=== PATIENT | female | born 1985 | race Caucasian/White ===

== ENCOUNTER 2020-02-07 11:43 | Emergency (ER) | payer OTHER ==
--- NOTE | 2020-02-07 12:38 | ER Document Report ---
Entered by NIURKA RIVERA SCRIBE 02/07/20 1231 Acting as scribe for:LINDA ORDONEZ MD ED GI/ - General Stated Complaint: FEVER,NAUSEA Time Seen by Provider: 02/07/20 12:09 Mode of Arrival: Ambulatory Information source: Patient Notes: This 35 year old female patient presents to the emergency department today with complaints of urinary frequency. She was seen at an urgent care yesterday and was diagnosed with a UTI and put on Macrodantin. She reports that she has now developed bilateral kidney pain, fevers, chills, generalized body aches, headache, and nausea. She does not have any vomiting. - Related Data Allergies/Adverse Reactions: No Known Allergies Allergy (Verified 02/07/20 13:23) Past Medical History - General Information source: Patient - Social History Smoking Status: Former Smoker Cigarette use (# per day): No Frequency of alcohol use: None Drug Abuse: None Lives with: Family Family History: Reviewed & Not Pertinent - Medical History Medical History: Negative Past Surgical History: Reports: Hx Section - x2, Hx Tonsillectomy Review of Systems - Review of Systems Constitutional: See HPI, Chills, Fever EENT: No symptoms reported Cardiovascular: No symptoms reported Respiratory: No symptoms reported Gastrointestinal: See HPI, Nausea. denies: Vomiting Genitourinary: See HPI, Frequency Female Genitourinary: No symptoms reported Musculoskeletal: See HPI, Muscle pain Skin: No symptoms reported Hematologic/Lymphatic: No symptoms reported Neurological/Psychological: See HPI, Headaches -: Yes All other systems reviewed and negative Physical Exam - Vital signs Vitals: Temp Pulse Resp BP Pulse Ox 98.8 F 108 H 20 134/84 H 97 02/07/20 11:49 02/07/20 11:49 02/07/20 11:49 02/07/20 11:49 02/07/20 11:49 - Notes Notes: Physical Exam: General: Alert, appears well. HEENT: Normocephalic. Atraumatic. PERRL. Extraocular movements intact. O ropharynx clear. Neck: Supple. Non-tender. Respiratory: No respiratory distress. Clear and equal breath sounds bilaterally. Cardiovascular: Regular rate and rhythm. Abdominal: Suprapubic tenderness to palpation. No distension. Normal Bowel Sounds. Back: Bilateral CVA tenderness to percussion. No gross abnormalities. Extremities: Moves all four extremities. Upper extremities: Normal inspection. Normal ROM. Lower extremities: Normal inspection. No edema. Normal ROM. Neurological: Normal cognition. AAOx4. Normal speech. Psychological: Normal affect. Normal Mood. Skin: Warm. Dry. Normal color. Course - Re-evaluation Re-evalutation: 02/07/20 13:43 The patient was evaluated during the global COVID-19 pandemic and that diagnosis was suspected/considered upon their initial presentation. Their evaluation, treatment and testing was consistent with current guidelines for patients who present with complaints or symptoms that may be related to COVID-19. 02/07/20 16:13 The patient's bilirubin and transaminases were all slightly elevated. Gallbladder ultrasound showed hypoechoic liver, question of hepatitis. The CBC was unremarkable, the other chemistries were unremarkable. The urinalysis had 0 WBCs and 0 RBCs, leukocyte esterase negative and nitrite negative. It was a very dilute specimen. - Vital Signs Vital signs: Temp Pulse Resp BP Pulse Ox 98.8 F 108 H 20 134/84 H 97 02/07/20 12:00 02/07/20 11:49 02/07/20 11:49 02/07/20 11:49 02/07/20 11:49 - Laboratory Result Diagrams: 02/07/20 13:10 02/07/20 13:10 Laboratory results interpreted by me: 02/07/20 02/07/20 13:10 13:10 BUN 6 L Total Bilirubin 1.6 H Direct Bilirubin 0.5 H AST 104 H ALT 81 H Alkaline Phosphatase 179 H Urine Ketones 20 H Urine Blood SMALL H - Diagnostic Test Radiology reviewed: Image reviewed, Reports reviewed - Gallbladder ultrasound shows no gallstones or gallbladder wall thickening. No pericholecystic fluid. There is a hypoechoic liver pattern with question of hepatitis. Discharge - Discharge Clinical Impression: Urinary tract infection symptoms, Thoracolumbar back pain, Elevated liver enzymes, Encounter for laboratory testing for COVID-19 virus Condition: Stable Disposition: HOME, SELF-CARE Additional Instructions: The urinalysis today did not show signs of urine infection, however you have been on your antibiotics since yesterday and they may be working. You should continue the Macrodantin and drink plenty of fluids. The lab work showed a slight elevation in your liver enzymes today, a gallbladder ultrasound showed a liver pattern that could possibly be hepatitis. Hepatitis profile testing was ordered today, and he will be contacted if it comes back positive. The white blood cell count in the blood work was normal today which would suggest that the chills you are having last night were not due to a bacterial infection. Your symptoms may have been due to a viral infection, and COVID-19 cannot be excluded without testing. You were tested for COVID-19, you should self isolate at home until you get the testing results back. Follow-up with your primary care provider if not improving. RETURN TO THE EMERGENCY ROOM IF ANY NEW OR WORSENING SYMPTOMS. I personally performed the services described in the documentation, reviewed and edited the documentation which was dictated to the scribe in my presence, and it accurately records my words and actions.
[2020-02-07 13:33] LABS: ABSOLUTE LYMPHOCYTES (AUTO) 1.3 10^3/uL (0.5-4.7); ABSOLUTE NEUT (AUTO) 7.5 10^3/uL (1.7-8.2); BASOPHILS % (AUTO) 0.3 % (0-2); EOSINOPHILS % (AUTO) 0.1 % (0-6); HEMATOCRIT 41.8 % (36.0-47.0); HEMOGLOBIN 14.6 g/dL (12.0-15.5); LYMPHOCYTES % (AUTO) 13.2 % (13-45); MEAN CORPUSCULAR HEMOGLOBIN 30.3 pg (27.0-33.4); MEAN CORPUSCULAR HGB CONC 34.9 g/dL (32.0-36.0); MEAN CORPUSCULAR VOLUME 87 fl (80-97); PLATELET COUNT 295 10^3/uL (150-450); RED BLOOD COUNT 4.82 10^6/uL (3.72-5.28); RED CELL DISTRIBUTION WIDTH 12.5 % (11.5-14.0); SEGMENTED NEUTROPHILS % (AUTO) 76.4 % (42-78); TOTAL CELLS COUNTED % (AUTO) 100 %; WHITE BLOOD COUNT 9.9 10^3/uL (4.0-10.5)
[2020-02-07 13:36] LABS: APPEARANCE,URINE CLEAR; BILIRUBIN,URINE NEGATIVE (NEGATIVE); COLOR,URINE YELLOW; GLUCOSE, URINE NEGATIVE (NEGATIVE); KETONES,URINE 20 mg/dL (NEGATIVE); LEUKOCYTE ESTERASE,URINE NEGATIVE (NEGATIVE); NITRITE,URINE NEGATIVE (NEGATIVE); PROTEIN,URINE NEGATIVE (NEGATIVE); URINE SPECIFIC GRAVITY 1.002; UROBILINOGEN,URINE NEGATIVE mg/dL (<2.0)
[2020-02-07 13:50] LABS: ALBUMIN 4.7 g/dL (3.5-5.0); ALKALINE PHOSPHATASE 179 U/L (38-126); ANION GAP 12 (5-19); ASPARTATE AMINO TRANSFERASE 104 U/L (14-36); BILIRUBIN,DIRECT 0.5 mg/dL (0.0-0.4); BILIRUBIN,TOTAL 1.6 mg/dL (0.2-1.3); BLOOD UREA NITROGEN 6 mg/dL (7-20); CALCIUM 9.5 mg/dL (8.4-10.2); CARBON DIOXIDE 26 mmol/L (22-30); CHLORIDE 100 mmol/L (98-107); GLUCOSE 95 mg/dL (75-110); POTASSIUM 3.9 mmol/L (3.6-5.0); TOTAL PROTEIN 8.1 g/dL (6.3-8.2)
--- NOTE | 2020-02-07 15:37 | RADIOLOGY REPORT (SQ) ---
EXAM DESCRIPTION: U/S ABDOMEN LIMITED W/O DOP IMAGES COMPLETED DATE/TIME: 02/07/2020 3:16 pm REASON FOR STUDY: Back pain, elevated LFTs COMPARISON: None. TECHNIQUE: Dynamic and static grayscale images acquired of the abdomen and recorded on PACS. Additio nal selected color Doppler and spectral images recorded. LIMITATIONS: Midline bowel gas FINDINGS: PANCREAS: Midline pancreas unremarkable LIVER: No masses or biliary ductal dilatation. Liver is hypoechoic which can seen in hepatitis. LIVER VASCULATURE: Normal directional flow of the main portal vein and hepatic veins. GALLBLADDER: No stones. Normal wall thickness. No pericholecystic fluid. ULTRASOUND-DETECTED FLORES'S SIGN: Negative. INTRAHEPATIC DUCTS AND COMMON DUCT: CBD and intrahepatic ducts normal caliber. No filling defects. INFERIOR VENA CAVA: Normal flow. AORTA: No aneurysm. RIGHT KIDNEY: Normal size. Normal echogenicity. No solid or suspicious masses. No hydronephrosis. No calcifications. PERITONEAL AND RIGHT PLEURAL SPACE: No ascites or effusions. OTHER: No other significant findings. IMPRESSION: Hypoechoic liver, question hepatitis No gallstones. No biliary ductal dilatation TECHNICAL DOCUMENTATION: JOB ID: [id number] 2010 [employer]- All Rights Reserved Reading location - IP/workstation name: [email or web address]
[2020-02-07] MEDS ORDERED: KETOROLAC TROMETHAMINE INJ/PF 30 MG/1 ML SDV IV ONE (15:55)
[2020-02-07 18:02] VITALS: BP 121/73
[2020-02-09 13:36] LABS: HEPATITS B SURFACE ANTIGEN Negative (Negative)
[2020-02-09 14:20] LABS: HEPATITIS C VIRUS ANTIBODY <0.1 s/co ratio (0.0-0.9)
== END 2020-02-07 17:50 | disposition home or self-care (01) ==
LOC: ER 11:43
DX: R39.198 Other difficulties with micturition (principal); M54.5 Low back pain; M54.6 Pain in thoracic spine; R74.8 Abnormal levels of other serum enzymes; R50.9 Fever, unspecified; R11.0 Nausea; N23 Unspecified renal colic; R35.0 Frequency of micturition; Z87.891 Personal history of nicotine dependence; Z20.828 Contact with and (suspected) exposure to other viral communicable diseases
CPT/HCPCS: 99285; 96374; 36415; 87040; 85025; 87635; 81025; 80053; 81001; 80074; 76705; J1885; C9803